=== PATIENT | female | born 1955 | race Asian ===

== ENCOUNTER 2023-12-10 20:58 | Emergency (ER) | payer MEDICARE ==
[~2023-12-10] VITALS: Ht 157.5 cm; Wt 49.9 kg
[2023-12-10 20:59] VITALS: BP 99/47; PULSE 81; RESP 19; TEMP 97.8; O2SAT 99
[2023-12-10] MEDS: NACL 0.9% 2,000 ML IV SCH (21:39)
[2023-12-10] MEDS ORDERED: cefTRIAXone 1,000 MG VIAL ONE (21:51)
[2023-12-10 22:25] LABS: BASOPHILS # (AUTO) 0.1 K/uL (0.00-0.22); BASOPHILS % (AUTO) 0.3 % (0.0-2.0); EOSINOPHILS % (AUTO) 0.1 % (0.0-4.0); HEMATOCRIT 24.7 % (36-48); HEMOGLOBIN 8.4 g/dL (12.0-16.0); LYMPHOCYTES # (AUTO) 1.1 K/uL (2.5-16.5); LYMPHOCYTES % (AUTO) 4.2 % (20.5-51.1); MEAN CORPUSCULAR HEMOGLOBIN 29 pg (27-31); MEAN CORPUSCULAR HGB CONC 34 g/dL (33-37); MEAN CORPUSCULAR VOLUME 86.5 fL (80-94); NEUTROPHILS # (AUTO) 23.6 K/uL (1.8-7.7); NEUTROPHILS % (AUTO) 91.4 % (42.2-75.2); PLATELET COUNT (AUTO) 280 K/uL (140-450); RED BLOOD CELL COUNT(AUTO) 2.86 MIL/uL (4.20-5.40); RED CELL DISTRIBUTION WIDTH 14.5 % (11.6-13.7)
[2023-12-10 22:34] LABS: CALCIUM 7.3 mg/dL (8.5-10.1); CARBON DIOXIDE 28.8 mmol/L (21-32); CREATININE 1.1 mg/dL (0.6-1.3); POTASSIUM 3.8 mmol/L (3.5-5.1)
[2023-12-10 22:36] LABS: WHITE BLOOD COUNT (AUTO) 25.9 K/uL (4.8-10.8)
[2023-12-10] MEDS: cefTRIAXone 1,000 MG in DEXT 5% MINI-BAG PLUS 50 ML IV ONE (22:40)
[2023-12-10 22:44] LABS: LACTIC ACID 1.6 mmol/L (0.4-2.0)
[2023-12-10 23:02] LABS: FLU A ANTIGEN negative (NEGATIVE); FLU B ANTIGEN NEGATIVE (NEGATIVE)
[2023-12-10 23:10] LABS: APPEARANCE,URINE CLEAR (CLEAR); BILIRUBIN,URINE 3+ (NEGATIVE); BLOOD, URINE 3+ (NEGATIVE); COLOR,URINE YELLOW (YELLOW); LEUKOCYTE ESTERASE ,URINE 2+ (NEGATIVE); NITRITE, URINE POSITIVE (NEGATIVE); PROTEIN,URINE 3+ (NEGATIVE); UGLUCOSE TRACE (NEGATIVE); UROBILINOGEN,URINE >=8.0 EU/dL (0.2 - 1)
[2023-12-10 23:14] LABS: BACTERIA,URINE >30 (MANY) /HPF (None Seen); ICTOTEST POSITIVE (NEGATIVE); RBC,URINE TOO NUMEROUS TO COUN /HPF (0-5)
[2023-12-10 23:15] LABS: MUCUS,URINE 1+ /LPF (None Seen); SQUAMOUS EPITHELIAL CELL,UR 0-3 (FEW) /LPF (0-3 (FEW))
[2023-12-11 01:57] VITALS: TEMP 98.1
[2023-12-11 04:27] VITALS: BP 117/50; PULSE 72; RESP 14; O2SAT 99
== END 2023-12-11 04:06 | disposition short-term general hospital (02) ==
LOC: MED 20:58
DX: I95.9 Hypotension, unspecified (principal); Z20.822 Contact with and (suspected) exposure to COVID-19; N39.0 Urinary tract infection, site not specified; Z79.899 Other long term (current) drug therapy
CPT/HCPCS: 36415; 51702; 71045; 72127; 80048; 81001; 83605; 83880; 84484; 85025; 85651; 86140; 87040; 87086; 87426; 87804; 93005; 96361; 96365; 99285; J0696; J7030; Q9967; J0713